=== PATIENT | male | born 1950 | race Caucasian/White ===

== ENCOUNTER 2019-05-03 13:54 | Inpatient (IN) | payer MEDICARE ==
[2019-05-03] MEDS ORDERED: Lactated Ringers 1,000 ML IV ONE (13:58)
[2019-05-03] MEDS ORDERED: ceFAZolin 2 GM in Premix Bag 1 BAG IV ONE (14:00)
--- NOTE | 2019-05-03 14:09 | EDM.PDOC ---
ED HPI GENERAL MEDICAL PROBLEM - General Chief Complaint: General Stated Complaint: MED [facility]IA [facility] Time Seen by Provider: 05/03/19 13:55 Source of Information: Reports: Patient, EMS, Family, Old Records, RN History Limitations: Reports: No Limitations - History of Present Illness INITIAL COMMENTS - FREE TEXT/NARRATIVE: 68 yo male here via EMS from his home in [place] where he lives with his . She says he has not eaten or drank much in the last 24 hrs. He became ill about 5 d ago and then yesterday morning she noticed redness on the R side of his face that has spread significantly since then. Seems a bit confused today. No treatment for fever today. Has facial cellulitis once in the remote past. 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 (see below) (none) - Related Data Allergies Allergy/AdvReac Type Severity Reaction Status Date / Time cyclobenzaprine HCl Allergy Seizure Verified 05/03/19 14:20 [From Flexeril] Home Meds: Home Meds Aspirin [Halfprin] 1 tab PO DAILY 12/31/14 [History] Cholecalciferol (Vitamin D3) [Vitamin D] 1 cap PO DAILY 12/31/14 [History] Divalproex Sodium [Divalproex Sodium ER] 1,000 mg PO BID 12/31/14 [History] Lisinopril 40 mg PO DAILY 12/31/14 [History] Metoprolol Succinate 50 mg PO BID 12/31/14 [History] Multivitamin with Minerals [Multiple Vitamin] 1 tab PO DAILY 12/31/14 [History] amLODIPine [Norvasc] 10 mg PO DAILY 12/31/14 [History] atorvaSTATin [Lipitor] 40 mg PO BEDTIME 12/31/14 [History] carBAMazepine [TEGretol] 300 mg PO BID 12/31/14 [History] ED ROS GENERAL - Review of Systems Review Of Systems: See Below Constitutional: Reports: Fever, Malaise, Fatigue HEENT: Reports: No Symptoms Respiratory: Reports: No Symptoms Cardiovascular: Reports: No Symptoms GI/Abdominal: Reports: Decreased Appetite : Reports: No Symptoms Musculoskeletal: Reports: No Symptoms Skin: Reports: Erythema (R side of face) Neurological: Denies: Headache Psychiatric: Reports: Confusion (mild) ED EXAM, GENERAL - Physical Exam Exam: See Below Exam Limited By: No Limitations General Appearance: Alert, WD/WN, No Apparent Distress Eye Exam: Bilateral Eye: Normal Inspection Ears: Normal External Exam, Normal Canal, Hearing Grossly Normal, Normal TMs Ear Exam: Bilateral Ear: Auricle Normal, Canal Normal, TM normal Nose: Normal Inspection, No Blood Throat/Mouth: Normal Inspection, Normal Lips, Normal Oropharynx, Normal Voice, No Airway Compromise Head: Atraumatic, Normocephalic Neck: Normal Inspection. No: Lymphadenopathy (R), Lymphadenopathy (L) Respiratory/Chest: No Respiratory Distress, Lungs Clear, Normal Breath Sounds, No Accessory Muscle Use Cardiovascular: Regular Rate, Rhythm, No Edema GI/Abdominal: Normal Bowel Sounds, Soft, Non-Tender, No Distention Extremities: Normal Inspection, Normal Range of Motion, Non-Tender, No Pedal Edema Neurological: CN II-XII Intact, No Motor/Sensory Deficits, Confused, Slow to Respond Psychiatric: Flat Affect Skin Exam: Warm, Dry, No Rash, Erythema (and increased warmth to the R side of his face. ), Increased Warmth. No: Rash, Wound/Incision, Zoster-Like Rash Course - Vital Signs Last Recorded V/S: Last Vital Signs Temp 39.7 C H 05/03/19 14:28 Pulse 91 05/03/19 14:28 Resp 20 05/03/19 14:28 BP 141/72 H 05/03/19 14:28 Pulse Ox 94 L 05/03/19 14:28 - Orders/Labs/Meds Orders: Active Orders 24 hr Category Date Time Status CULTURE BLOOD [BC] Stat Lab 05/03/19 14:00 Received CULTURE BLOOD [BC] Stat Lab 05/03/19 14:15 Received LACTIC ACID [CHEM] Stat Lab 05/03/19 14:00 Received UA W/MICROSCOPIC [URIN] Stat Lab 05/03/19 13:59 Ordered Lactated Ringers [Ringers, Lactated] 1,000 ml Med 05/03/19 13:58 Active IV BOLUS Medication Orders Lactated Ringer's (Ringers, Lactated) 1,000 mls @ 1,000 mls/hr IV BOLUS ONE Stop: 05/03/19 14:57 Last Admin: 05/03/19 14:18 Dose: 1,000 mls/hr Labs: Laboratory Tests 05/03/19 05/03/19 Range/Units 14:00 14:00 WBC 20.2 H (4.5-11.0) K/uL RBC 4.42 (4.30-5.90) M/uL Hgb 13.7 (12.0-15.0) g/dL Hct 42.1 (40.0-54.0) % MCV 95 (80-98) fL MCH 31 (27-31) pg MCHC 33 (32-36) % Plt Count 195 (150-400) K/uL Sodium 132 L (140-148) mmol/L Potassium 3.0 L (3.6-5.2) mmol/L Chloride 94 L (100-108) mmol/L Carbon Dioxide 27 (21-32) mmol/L Anion Gap 14.0 (5.0-14.0) mmol/L BUN 22 H (7-18) mg/dL Creatinine 1.4 H (0.8-1.3) mg/dL Est Cr Clr Drug Dosing 39.50 mL/min Estimated GFR (MDRD) 50 L (>60) Glucose 128 H (74-106) mg/dL Calcium 9.0 (8.5-10.1) mg/dL Meds: Medications Generic Name Dose Route Start Last Admin Trade Name Freq PRN Reason Stop Dose Admin Lactated Ringer's 1,000 mls @ 1,000 mls/hr 05/03/19 13:58 05/03/19 14:18 Ringers, Lactated IV 05/03/19 14:57 1,000 mls/hr BOLUS ONE Administration Discontinued Medications Generic Name Dose Route Start Last Admin Trade Name Freq PRN Reason Stop Dose Admin Cefazolin Sodium/Dextrose 2 gm 50 mls @ 100 mls/hr 05/03/19 14:00 05/03/19 14 :18 / Premix IV 05/03/19 14:29 100 mls/hr ONETIME ONE Administration Departure - Departure Time of Disposition: 14:50 Disposition: Admitted As Inpatient 64 Condition: Poor Clinical Impression: Facial cellulitis, Hypokalemia, Confusion - Discharge Information *PRESCRIPTION DRUG MONITORING PROGRAM REVIEWED*: No *COPY OF PRESCRIPTION DRUG MONITORING REPORT IN PATIENT AASHISH: No Instructions: Cellulitis, Adult Referrals: PCP,None [Primary Care Provider] - Forms: ED Department Discharge Sepsis Event Note - Focused Exam Vital Signs: Vital Signs Temp Pulse Resp BP Pulse Ox 05/03/19 14:28 39.7 C H 91 20 141/72 H 94 L 05/03/19 13:55 39.7 C H 91 20 141/72 H 94 L Date Exam was Performed: 05/03/19 Time Exam was Performed: 14:39 - My Orders Last 24 Hours: My Active Orders 05/03/19 13:58 Lactated Ringers [Ringers, Lactated] 1,000 ml IV BOLUS 05/03/19 13:59 UA W/MICROSCOPIC [URIN] Stat 05/03/19 14:00 CULTURE BLOOD [BC] Stat LACTIC ACID [CHEM] Stat 05/03/19 14:15 CULTURE BLOOD [BC] Stat - Assessment/Plan Last 24 Hours: My Active Orders 05/03/19 13:58 Lactated Ringers [Ringers, Lactated] 1,000 ml IV BOLUS 05/03/19 13:59 UA W/MICROSCOPIC [URIN] Stat 05/03/19 14:00 CULTURE BLOOD [BC] Stat LACTIC ACID [CHEM] Stat 05/03/19 14:15 CULTURE BLOOD [BC] Stat
[2019-05-03] MEDS ORDERED: Acetaminophen 500 MG Tab PO ONE (14:40)
--- NOTE | 2019-05-03 15:19 | PCM.HP.2 ---
H&P History of Present Illness - General Date of Service: 05/03/19 Admit Problem/Dx: Admission Diagnosis/Problem Admission Diagnosis/Problem Cellulitis Source of Information: Patient, Family, Provider, RN Notes Reviewed History Limitations: Reports: No Limitations - History of Present Illness Initial Comments - Free Text/Narative: Mr. Tai is a 68-year-old gentleman who was admitted through the emergency department with weakness and fever secondary to cellulitis of his right face and head. He has not felt well over the past 5 days, noted erythema swelling of his right cheek yesterday. Since then the area of erythema and induration has increased and spread onto the forehead and scalp. He has had fever, chills, nausea, and vomiting, as well as weakness. On evaluation in the emergency department white blood cell count is elevated at 20,000 and he has had a documented fever. - Related Data Allergies/Adverse Reactions: Allergies Allergy/AdvReac Type Severity Reaction Status Date / Time cyclobenzaprine HCl Allergy Seizure Verified 05/03/19 14:20 [From Flexeril] Home Medications: Home Meds Aspirin [Halfprin] 1 tab PO DAILY 12/31/14 [History] Cholecalciferol (Vitamin D3) [Vitamin D] 1 cap PO DAILY 12/31/14 [History] Divalproex Sodium [Divalproex Sodium ER] 1,000 mg PO BID 12/31/14 [History] Lisinopril 40 mg PO DAILY 12/31/14 [History] Metoprolol Succinate 50 mg PO BID 12/31/14 [History] Multivitamin with Minerals [Multiple Vitamin] 1 tab PO DAILY 12/31/14 [History] amLODIPine [Norvasc] 10 mg PO DAILY 12/31/14 [History] atorvaSTATin [Lipitor] 40 mg PO BEDTIME 12/31/14 [History] carBAMazepine [TEGretol] 300 mg PO BID 12/31/14 [History] Past Medical History Cardiovascular History: Reports: High Cholesterol, Hypertension, [place] Musculoskeletal History: Reports: Back Pain, Chronic Neurological History: Reports: Seizure - Past Surgical History Cardiovascular Surgical History: Reports: Coronary Artery Bypass GI Surgical History: Reports: Cholecystectomy H&P Review of Systems - Review of Systems: Review Of Systems: See Below General: Reports: Fever, Chills, Weakness, Diaphoresis, Decreased Appetite HEENT: Reports: No Symptoms Pulmonary: Reports: No Symptoms Cardiovascular: Reports: No Symptoms Gastrointestinal: Reports: Decreased Appetite, Nausea, Vomiting. Denies: Abdominal Pain, Anorexia, Black Stool, Bloody Stool, Constipation, Diarrhea, Difficulty Swallowing, Distension Genitourinary: Reports: No Symptoms Musculoskeletal: Reports: No Symptoms Skin: Reports: Other (Erythema swelling right face forehead and scalp) Psychiatric: Reports: No Symptoms Neurological: Reports: No Symptoms Hematologic/Lymphatic: Reports: No Symptoms Immunologic: Reports: No Symptoms Exam - Exam Exam: See Below - Vital Signs Vital Signs: Last Vital Signs Temp 103.4 F H 05/03/19 14:28 Pulse 91 05/03/19 14: Resp 20 05/03/19 14: BP 141/72 H 05/03/19 14: Pulse Ox 94 L 05/03/19 14:28 Weight: 179 lb 0.246 oz - Exam General: Alert, Oriented, Cooperative, Moderate Distress HEENT: Conjunctiva Clear, Hearing Intact, Mucosa Moist & Orange, Normal Nasal Septum, Posterior Pharynx Clear, Pupils Equal Neck: Supple, Trachea Midline, +2 Carotid Pulse wo Bruit Lungs: Clear to Auscultation, Normal Respiratory Effort Cardiovascular: Regular Rate, Regular Rhythm, Normal S1, Normal S2. No: Systolic Murmur, Diastolic Murmur GI/Abdominal Exam: Soft, Non-Tender, No Organomegaly, No Distention Back Exam: Normal Inspection, Full Range of Motion Extremities: Non-Tender, No Pedal Edema Skin: Other (Marked erythema swelling right face forehead and scalp) Neurological: Cranial Nerves Intact, Strength Equal Bilateral, Normal Speech, Normal Tone, Sensation Intact. No: Focal Deficit Neuro Extensive - Mental Status: Alert, Oriented x3, Normal Mood/Affect, Normal Cognition, Memory Intact - Patient Data Lab Results Last 24 hrs: Laboratory Results - last 24 hr 05/03/19 05/03/19 05/03/19 Range/Units 14:00 14:00 14:00 WBC 20.2 H (4.5-11.0) K/uL RBC 4.42 (4.30-5.90) M/uL Hgb 13.7 (12.0-15.0) g/dL Hct 42.1 (40.0-54.0) % MCV 95 (80-98) fL MCH 31 (27-31) pg MCHC 33 (32-36) % Plt Count 195 (150-400) K/uL Sodium 132 L (140-148) mmol/L Potassium 3.0 L (3.6-5.2) mmol/L Chloride 94 L (100-108) mmol/L Carbon Dioxide 27 (21-32) mmol/L Anion Gap 14.0 (5.0-14.0) mmol/L BUN 22 H (7-18) mg/dL Creatinine 1.4 H (0.8-1.3) mg/dL Est Cr Clr Drug Dosing 39.50 mL/min Estimated GFR (MDRD) 50 L (>60) Glucose 128 H (74-106) mg/dL Lactic Acid 2.2 H (0.4-2.0) mmol/L Calcium 9.0 (8.5-10.1) mg/dL Result Diagrams: 05/03/19 14:00 05/03/19 14:00 Sepsis Event Note - Evaluation Sepsis Screening Result: Possible Severe Sepsis Risk - Focused Exam Vital Signs: Vital Signs Temp Pulse Resp BP Pulse Ox 05/03/19 14:28 103.4 F H 91 20 141/72 H 94 L 05/03/19 13:55 103.4 F H 91 20 141/72 H 94 L Date Exam was Performed: 05/03/19 Time Exam was Performed: 15:40 *Q Meaningful Use (ADM) - VTE Risk Assess *Q Each Risk Factor Represents 1 Point: Obesity ( BMI > 25 kg/m2) Total Score 1 Point Risk Factors: 1 Each Risk Factor Represents 2 Points: Age 60 - 74 Years Total Score 2 Point Risk Factors: 2 Each Risk Factor Represents 3 Points: None Total Score 3 Point Risk Factors: 0 Each Risk Factor Represents 5 Points: None Total Score 5 Point Risk Factors: 0 Venous Thromboembolism Risk Factor Score *Q: 3 Problem List Initiated/Reviewed/Updated: Yes Orders Last 24hrs: Active Orders 24 hr Category Date Time Status Patient Status Manage Transfer [TRANSFER] Routine ADT 05/03/19 15:10 Ordered CULTURE BLOOD [BC] Stat Lab 05/03/19 14:00 Received CULTURE BLOOD [BC] Stat Lab 05/03/19 14:15 Received UA W/MICROSCOPIC [URIN] Stat Lab 05/03/19 13:59 Ordered Resuscitation Status Routine Resus Stat 05/03/19 15:13 Ordered Assessment/Plan Comment:: ASSESSMENT AND PLAN CELLULITIS RIGHT FACE WITH SEPSIS-set of erythema yesterday with rapid progression, now involves most of the right face forehead and extends into the scalp. Evidence of sepsis with leukocytosis and fever. No evidence of underlying abscess. -Blood cultures pending -IV fluids -Cefazolin 2 g IV every 8 hours CORONARY ARTERY DISEASE-asymptomatic -Continue outpatient medications SEIZURE DISORDER -Continue outpatient medications MAINTENANCE ISSUES -DVT prophylaxis; Lovenox 40 mg subcu daily -GI prophylaxis; not indicated -Chow catheter; not indicated -Nutrition; 2 g sodium diet -Nicotine dependence; not required CODE STATUS-FULL CODE ADMISSION STATUS-patient will be admitted to inpatient status, expect at least a 2 night hospital stay for evaluation and management of problems as outlined above. At the time of this admission I do not reasonably expected evaluation and management of this problem will require more than a 96 hour hospital stay. DISPOSITION-anticipate discharge to home after the hospital stay. PRIMARY CARE PROVIDER- - Mortality Measure Prognosis:: Good
[2019-05-03] MEDS ORDERED: Sodium Chloride 0.9% 10 ML Syringe FLUSH PRN (16:24)
[2019-05-03] MEDS ORDERED: Polyethylene Glycol 3350 Powder 17 GM Packet PO PRN (16:24)
[2019-05-03] MEDS ORDERED: Ondansetron 4 MG/2 ML SDV IV PRN (16:24)
[2019-05-03] MEDS ORDERED: oxyCODONE 5 MG Tab PO PRN (16:24)
[2019-05-03] MEDS ORDERED: Enoxaparin 40 MG/0.4 ML Syringe SUBCUT SCH (16:24)
[2019-05-03] MEDS: Sodium Chloride 0.9% 1,000 ML IV SCH (16:33)
[2019-05-03] MEDS: Acetaminophen 325 MG Tab PO PRN (20:25)
[2019-05-03] MEDS: Metoprolol Succinate 50 MG Tab.ER PO SCH (20:56)
[2019-05-03] MEDS: carBAMazepine 200 MG Tab PO SCH (20:58)
[2019-05-03] MEDS: Divalproex Sodium 250 MG Tab.ER PO SCH (21:03)
[2019-05-03] MEDS ORDERED: Ibuprofen 800 MG Tab PO PRN (21:06)
[2019-05-03] MEDS: ceFAZolin 2 GM in Sodium Chloride 0.9% 50 ML IV SCH (22:00)
[2019-05-04] MEDS: Sodium Chloride 0.9% 1,000 ML IV SCH ×3 (00:33→19:47)
[2019-05-04] MEDS: ceFAZolin 2 GM in Sodium Chloride 0.9% 50 ML IV SCH ×3 (05:23→21:13)
[2019-05-04] MEDS ORDERED: Sodium Chloride 0.9% 1,000 ML IV SCH (09:00)
[2019-05-04] MEDS ORDERED: Aspirin 81 MG Tab.EC PO SCH (09:00)
[2019-05-04] MEDS ORDERED: Potassium Chloride 20 MEQ Tab.ER PO ONE ×2 (09:00→13:00)
[2019-05-04] MEDS: Acetaminophen 325 MG Tab PO PRN ×2 (09:31→19:53)
[2019-05-04] MEDS: Divalproex Sodium 250 MG Tab.ER PO SCH ×3 (09:32→20:17)
[2019-05-04] MEDS: amLODIPine 10 MG Tab PO SCH (09:32)
[2019-05-04] MEDS: carBAMazepine 200 MG Tab PO SCH ×3 (09:34→20:17)
[2019-05-04] MEDS: Lisinopril 20 MG Tab PO SCH (09:34)
[2019-05-04] MEDS: Metoprolol Succinate 50 MG Tab.ER PO SCH ×3 (09:35→20:17)
--- NOTE | 2019-05-04 10:28 | PCM.PN ---
- General Info Date of Service: 05/04/19 Subjective Update: Mr. Tai has experienced modest improvement in cellulitis with less tenderness swelling and pain. He did experience significant temperature elevation after admission but that seems to have settled down. White blood cell count is modestly improved, renal function slightly worse. Lactic acid level remains mildly elevated and increased from last night. Functional Status: Reports: Tolerating Diet, Ambulating, Urinating - Review of Systems General: Reports: Fever, Weakness, Chills Pulmonary: Reports: No Symptoms Cardiovascular: Reports: No Symptoms Gastrointestinal: Reports: No Symptoms Skin: Reports: Other (Cellulitis right face) - Patient Data Vitals - Most Recent: Last Vital Signs Temp 99.5 F 05/04/19 08:25 Pulse 65 05/04/19 09:35 Resp 16 05/04/19 08:25 BP 142/62 H 05/04/19 09:35 Pulse Ox 97 05/04/19 08:25 Weight - Most Recent: 180 lb I&O - Last 24 Hours: Intake & Output 05/03/19 05/04/19 05/04/19 22:59 06:59 14:59 Intake Total 184 1524 Balance 184 1524 Lab Results Last 24 Hours: Laboratory Results - last 24 hr 05/03/19 05/03/19 05/03/19 Range/Units 14:00 14:00 14:00 WBC 20.2 H (4.5-11.0) K/uL RBC 4.42 (4.30-5.90) M/uL Hgb 13.7 (12.0-15.0) g/dL Hct 42.1 (40.0-54.0) % MCV 95 (80-98) fL MCH 31 (27-31) pg MCHC 33 (32-36) % Plt Count 195 (150-400) K/uL Neut % (Auto) (36-66) % Lymph % (Auto) (24-44) % [place] % (Auto) (2-6) % Eos % (Auto) (2-4) % Baso % (Auto) (0-1) % Sodium 132 L (140-148) mmol/L Potassium 3.0 L (3.6-5.2) mmol/L Chloride 94 L (100-108) mmol/L Carbon Dioxide 27 (21-32) mmol/L Anion Gap 14.0 (5.0-14.0) mmol/L BUN 22 H (7-18) mg/dL Creatinine 1.4 H (0.8-1.3) mg/dL Est Cr Clr Drug Dosing 39.50 mL/min Estimated GFR (MDRD) 50 L (>60) Glucose 128 H (74-106) mg/dL Lactic Acid 2.2 H (0.4-2.0) mmol/L Calcium 9.0 (8.5-10.1) mg/dL Urine Color (YELLOW) Urine Appearance (CLEAR) Urine pH (5.0-8.0) Ur Specific [place] (1.008-1.030) Urine Protein (NEGATIVE) mg/dL Urine Glucose (UA) (NEGATIVE) mg/dL Urine Ketones (NEGATIVE) mg/dL Urine Occult Blood (NEGATIVE) Urine Nitrite (NEGATIVE) Urine Bilirubin (NEGATIVE) Urine Urobilinogen (0.2-1.0) EU/dL Ur Leukocyte Esterase (NEGATIVE) Urine RBC (0-5) Urine WBC (0-5) Ur Epithelial Cells Amorphous Sediment Urine Bacteria Urine Mucus 05/03/19 05/03/19 05/04/19 Range/Units 15:50 21:48 05:40 WBC (4.5-11.0) K/uL RBC (4.30-5.90) M/uL Hgb (12.0-15.0) g/dL Hct (40.0-54.0) % MCV (80-98) fL MCH (27-31) pg MCHC (32-36) % Plt Count (150-400) K/uL Neut % (Auto) (36-66) % Lymph % (Auto) (24-44) % [place] % (Auto) (2-6) % Eos % (Auto) (2-4) % Baso % (Auto) (0-1) % Sodium (140-148) mmol/L Potassium (3.6-5.2) mmol/L Chloride (100-108) mmol/L Carbon Dioxide (21-32) mmol/L Anion Gap (5.0-14.0) mmol/L BUN (7-18) mg/dL Creatinine (0.8-1.3) mg/dL Est Cr Clr Drug Dosing mL/min Estimated GFR (MDRD) (>60) Glucose (74-106) mg/dL Lactic Acid 2.4 H 2.5 H (0.4-2.0) mmol/L Calcium (8.5-10.1) mg/dL Urine Color Yellow (YELLOW) Urine Appearance Clear (CLEAR) Urine pH 6.0 (5.0-8.0) Ur Specific [place] >= 1.030 (1.008-1.030) Urine Protein 100 H (NEGATIVE) mg/dL Urine Glucose (UA) Negative (NEGATIVE) mg/dL Urine Ketones Negative (NEGATIVE) mg/dL Urine Occult Blood Trace-intact H (NEGATIVE) Urine Nitrite Negative (NEGATIVE) Urine Bilirubin Negative (NEGATIVE) Urine Urobilinogen 0.2 (0.2-1.0) EU/dL Ur Leukocyte Esterase Negative (NEGATIVE) Urine RBC 0-5 (0-5) Urine WBC 0-5 (0-5) Ur Epithelial Cells Not seen Amorphous Sediment Few Urine Bacteria Not seen Urine Mucus Not seen 05/04/19 05/04/19 Range/Units 05:50 05:50 WBC 17.6 H (4.5-11.0) K/uL RBC 3.63 L (4.30-5.90) M/uL Hgb 11.3 L D (12.0-15.0) g/dL Hct 35.8 L (40.0-54.0) % MCV 99 H (80-98) fL MCH 31 (27-31) pg MCHC 32 (32-36) % Plt Count 162 (150-400) K/uL Neut % (Auto) 78 H (36-66) % Lymph % (Auto) 12 L (24-44) % [place] % (Auto) 10 H (2-6) % Eos % (Auto) 0 L (2-4) % Baso % (Auto) 0 (0-1) % Sodium 137 L (140-148) mmol/L Potassium 3.2 L (3.6-5.2) mmol/L Chloride 99 L (100-108) mmol/L Carbon Dioxide 29 (21-32) mmol/L Anion Gap 12.2 (5.0-14.0) mmol/L BUN 30 H (7-18) mg/dL Creatinine 1.7 H (0.8-1.3) mg/dL Est Cr Clr Drug Dosing 32.54 mL/min Estimated GFR (MDRD) 40 L (>60) Glucose 97 (74-106) mg/dL Lactic Acid (0.4-2.0) mmol/L Calcium 8.3 L (8.5-10.1) mg/dL Urine Color (YELLOW) Urine Appearance (CLEAR) Urine pH (5.0-8.0) Ur Specific [place] (1.008-1.030) Urine Protein (NEGATIVE) mg/dL Urine Glucose (UA) (NEGATIVE) mg/dL Urine Ketones (NEGATIVE) mg/dL Urine Occult Blood (NEGATIVE) Urine Nitrite (NEGATIVE) Urine Bilirubin (NEGATIVE) Urine Urobilinogen (0.2-1.0) EU/dL Ur Leukocyte Esterase (NEGATIVE) Urine RBC (0-5) Urine WBC (0-5) Ur Epithelial Cells Amorphous Sediment Urine Bacteria Urine Mucus Med Orders - Current: Current Medications Acetaminophen (Tylenol) 650 mg PO Q4H PRN PRN Reason: Pain (Mild 1-3)/fever Last Admin: 05/04/19 09:31 Dose: 650 mg Amlodipine Besylate (Norvasc) 10 mg PO DAILY [facility] Last Admin: 05/04/19 09:32 Dose: 10 mg Aspirin (Halfprin) 81 mg PO DAILY [facility] Atorvastatin Calcium (Lipitor) 40 mg PO BEDTIME [facility] Carbamazepine (Tegretol Tab) 300 mg PO BID [facility] Last Admin: 05/04/19 09:34 Dose: 300 mg Divalproex Sodium (Depakote Er) 1,000 mg PO BID [facility] Last Admin: 05/04/19 09:32 Dose: 1,000 mg Enoxaparin Sodium (Lovenox) 40 mg SUBCUT QPM [facility] Cefazolin Sodium 2 gm/ Sodium (Chloride) 50 mls @ 200 mls/hr IV Q8HR [facility] Last Admin: 05/04/19 05:23 Dose: 200 mls/hr Sodium Chloride (Normal Saline) 1,000 mls @ 125 mls/hr IV ASDIRECTED [facility] Last Admin: 05/04/19 00:33 Dose: 125 mls/hr Sodium Chloride (Normal Saline) 1,000 mls @ 500 mls/hr IV ASDIRECTED [facility] Stop: 05/04/19 11:01 Last Admin: 05/04/19 09:36 Dose: 500 mls/hr Lisinopril (Prinivil) 40 mg PO DAILY [facility] Last Admin: 05/04/19 09:34 Dose: 40 mg Metoprolol Succinate (Toprol Xl) 50 mg PO BID [facility] Last Admin: 05/04/19 09:35 Dose: 50 mg Ondansetron HCl (Zofran) 4 mg IV Q4H PRN PRN Reason: Nausea/Vomiting Oxycodone HCl (Oxycodone) 5 mg PO Q4H PRN PRN Reason: Pain (moderate 4-6) Polyethylene Glycol (Miralax) 17 gm PO DAILY PRN PRN Reason: Constipation Potassium Chloride (Klor-Con M20) 40 meq PO ONETIME ONE Stop: 05/04/19 13:01 Sodium Chloride (Saline Flush) 10 ml FLUSH ASDIRECTED PRN PRN Reason: Keep Vein Open Discontinued Medications Acetaminophen (Tylenol Extra Strength) 1,000 mg PO ONETIME ONE Stop: 05/03/19 14:41 Last Admin: 05/03/19 14:58 Dose: 1,000 mg Enoxaparin Sodium (Lovenox) 40 mg SUBCUT DAILY [facility] Last Admin: 05/03/19 18:00 Dose: 40 mg Lactated Ringer's (Ringers, Lactated) 1,000 mls @ 1,000 mls/hr IV BOLUS ONE Stop: 05/03/19 14:57 Last Admin: 05/03/19 14:18 Dose: 1,000 mls/hr Cefazolin Sodium/Dextrose 2 gm (/ Premix) 50 mls @ 100 mls/hr IV ONETIME ONE Stop: 05/03/19 14:29 Last Admin: 05/03/19 14:18 Dose: 100 mls/hr Ibuprofen (Motrin) 800 mg PO Q8H PRN PRN Reason: Fever Last Admin: 05/03/19 21:38 Dose: 800 mg Potassium Chloride (Klor-Con M20) 40 meq PO ONETIME ONE Stop: 05/04/19 09:01 Last Admin: 05/04/19 09:31 Dose: 40 meq - Exam General: Alert, Oriented, Cooperative, No Acute Distress, Mild Distress Lungs: Clear to Auscultation, Normal Respiratory Effort Cardiovascular: Regular Rate, Regular Rhythm, No Murmurs GI/Abdominal Exam: Soft, Non-Tender, No Organomegaly, No Distention Extremities: Non-Tender, No Pedal Edema Skin: Other (Erythema right face and swelling, modestly improved from admission) Sepsis Event Note - Evaluation Sepsis Screening Result: Severe Sepsis Risk - Focused Exam Vital Signs: Vital Signs Temp Pulse Pulse Resp BP BP Pulse Ox 05/04/19 09:35 65 142/62 H 05/04/19 09:34 142/62 H 05/04/19 09:32 142/62 H 05/04/19 08:25 99.5 F 65 16 142/62 H 97 05/04/19 05:37 98.9 F 05/04/19 02:26 98.5 F 58 L 16 105/59 L 96 Date Exam was Performed: 05/04/19 Time Exam was Performed: 10:24 - Problem List Review Problem List Initiated/Reviewed/Updated: Yes - My Orders Last 24 Hours: My Active Orders 05/03/19 15:13 Resuscitation Status Routine 05/03/19 16:24 Patient Status [ADT] Routine Ambulate [RC] QID Height and Weight [RC] DAILY Intake and Output [RC] QSHIFT Notify Provider Vital Signs [RC] ASDIRECTED Oxygen Therapy [RC] PRN Peripheral IV Care [RC] . DIRECTED Up With Assistance [RC] ASDIRECTED Up to Chair [RC] QID Vital Signs [RC] Q4H Acetaminophen [Tylenol] 650 mg PO Q4H PRN Ondansetron [Zofran] 4 mg IV Q4H PRN Polyethylene Glycol 3350 [MiraLAX] 17 gm PO DAILY PRN Sodium Chloride 0.9% [Normal Saline] 1,000 ml IV ASDIRECTED Sodium Chloride 0.9% [Saline Flush] 10 ml FLUSH ASDIRECTED PRN oxyCODONE 5 mg PO Q4H PRN Peripheral IV Insertion Adult [OM.PC] Routine 05/03/19 21:00 Divalproex Sodium [Depakote ER] 1,000 mg PO BID Metoprolol Succinate [Toprol XL] 50 mg PO BID carBAMazepine [TEGretol Tab] 300 mg PO BID 05/03/19 22:00 ceFAZolin [Ancef] 2 gm Sodium Chloride 0.9% [Normal Saline] 50 ml IV Q8HR 05/03/19 Lunch 2 Gram Sodium Diet [DIET] 05/04/19 09:00 Aspirin [Halfprin] 81 mg PO DAILY Sodium Chloride 0.9% [Normal Saline] 1,000 ml IV ASDIRECTED amLODIPine [Norvasc] 10 mg PO DAILY lisinopriL [Prinivil] 40 mg PO DAILY 05/04/19 13:00 Potassium Chloride [Klor-Con M20] 40 meq PO ONETIME ONE 05/04/19 17:00 BASIC METABOLIC PANEL,BMP [CHEM] Stat LACTIC ACID [CHEM] Stat Enoxaparin [Lovenox] 40 mg SUBCUT QPM 05/04/19 21:00 atorvaSTATin [Lipitor] 40 mg PO BEDTIME 05/05/19 05:00 BASIC METABOLIC PANEL,BMP [CHEM] Timed CBC WITH AUTO DIFF [HEME] Timed LACTIC ACID [CHEM] Timed - Plan Plan:: ASSESSMENT AND PLAN CELLULITIS RIGHT FACE WITH SEPSIS-modest improvement since admission -Blood cultures pending -IV fluids -Cefazolin 2 g IV every 8 hours ACUTE KIDNEY INJURY-likely secondary to sepsis with underlying infection -IV fluid bolus now -Hold ibuprofen -Continue to closely monitor urine output and renal function CORONARY ARTERY DISEASE-asymptomatic -Continue outpatient medications SEIZURE DISORDER -Continue outpatient medications MAINTENANCE ISSUES -DVT prophylaxis; Lovenox 40 mg subcu daily -GI prophylaxis; not indicated -Chow catheter; not indicated -Nutrition; 2 g sodium diet -Nicotine dependence; not required CODE STATUS-FULL CODE ADMISSION STATUS-patient will be admitted to inpatient status, expect at least a 2 night hospital stay for evaluation and management of problems as outlined above. At the time of this admission I do not reasonably expected evaluation and management of this problem will require more than a 96 hour hospital stay. DISPOSITION-anticipate discharge to home after the hospital stay. PRIMARY CARE PROVIDER-
[2019-05-04] MEDS: Enoxaparin 40 MG/0.4 ML Syringe SUBCUT SCH (16:59)
[2019-05-04] MEDS: Aspirin 81 MG Tab.EC PO SCH (16:59)
[2019-05-04] MEDS: atorvaSTATin 20 MG Tab PO SCH ×2 (19:55→20:17)
[2019-05-05] MEDS: Sodium Chloride 0.9% 1,000 ML IV SCH ×2 (04:16→12:40)
[2019-05-05] MEDS: ceFAZolin 2 GM in Sodium Chloride 0.9% 50 ML IV SCH ×3 (05:10→21:17)
[2019-05-05] MEDS: Divalproex Sodium 250 MG Tab.ER PO SCH ×2 (08:44→21:28)
[2019-05-05] MEDS: amLODIPine 10 MG Tab PO SCH (08:44)
[2019-05-05] MEDS: carBAMazepine 200 MG Tab PO SCH ×2 (08:45→21:29)
[2019-05-05] MEDS: Lisinopril 20 MG Tab PO SCH (08:45)
[2019-05-05] MEDS: Metoprolol Succinate 50 MG Tab.ER PO SCH ×2 (08:45→21:29)
[2019-05-05] MEDS: Acetaminophen 325 MG Tab PO PRN (08:51)
--- NOTE | 2019-05-05 13:23 | PCM.PN ---
- General Info Date of Service: 05/05/19 Subjective Update: Mr. Tai has shown further improvement since yesterday, no significant temperature elevations and he has been hemodynamically stable. Renal function has improved and lactic acid has normalized. White blood cell count improved but not yet within normal range. Less tenderness and swelling over his right face. Functional Status: Reports: Tolerating Diet, Ambulating, Urinating - Review of Systems General: Reports: Weakness. Denies: Fever, Chills Pulmonary: Reports: No Symptoms Cardiovascular: Reports: No Symptoms Gastrointestinal: Reports: No Symptoms Skin: Reports: Other (Erythema right face and scalp improved from admission) - Patient Data Vitals - Most Recent: Last Vital Signs Temp 97.7 F 05/05/19 10:45 Pulse 70 05/05/19 10:45 Resp 16 05/05/19 10:45 BP 133/77 05/05/19 10:45 Pulse Ox 95 05/05/19 10:45 Weight - Most Recent: 183 lb 6.4 oz I&O - Last 24 Hours: Intake & Output 05/04/19 05/05/19 05/05/19 22:59 06:59 14:59 Intake Total 2119 2069 820 Balance 21190 820 Lab Results Last 24 Hours: Laboratory Results - last 24 hr 05/04/19 05/04/19 05/05/19 Range/Units 17:55 17:55 04:15 WBC 13.0 H (4.5-11.0) K/uL RBC 3.38 L (4.30-5.90) M/uL Hgb 10.5 L (12.0-15.0) g/dL Hct 33.3 L (40.0-54.0) % MCV 99 H (80-98) fL MCH 31 (27-31) pg MCHC 32 (32-36) % Plt Count 160 (150-400) K/uL Add Manual Diff Yes Neutrophils % (Manual) 59 (36-66) % Band Neutrophils % 13 H (5-11) % Lymphocytes % (Manual) 15 L (24-44) % Monocytes % (Manual) 13 H (2-6) % Sodium 138 L (140-148) mmol/L Potassium 3.6 (3.6-5.2) mmol/L Chloride 102 (100-108) mmol/L Carbon Dioxide 27 (21-32) mmol/L Anion Gap 12.6 (5.0-14.0) mmol/L BUN 30 H (7-18) mg/dL Creatinine 1.3 (0.8-1.3) mg/dL Est Cr Clr Drug Dosing 42.55 mL/min Estimated GFR (MDRD) 55 L (>60) Glucose 91 (74-106) mg/dL Lactic Acid 1.6 (0.4-2.0) mmol/L Calcium 8.2 L (8.5-10.1) mg/dL 05/05/19 05/05/19 Range/Units 04:15 04:15 WBC (4.5-11.0) K/uL RBC (4.30-5.90) M/uL Hgb (12.0-15.0) g/dL Hct (40.0-54.0) % MCV (80-98) fL MCH (27-31) pg MCHC (32-36) % Plt Count (150-400) K/uL Add Manual Diff Neutrophils % (Manual) (36-66) % Band Neutrophils % (5-11) % Lymphocytes % (Manual) (24-44) % Monocytes % (Manual) (2-6) % Sodium 139 L (140-148) mmol/L Potassium 3.6 (3.6-5.2) mmol/L Chloride 105 (100-108) mmol/L Carbon Dioxide 27 (21-32) mmol/L Anion Gap 10.6 (5.0-14.0) mmol/L BUN 23 H (7-18) mg/dL Creatinine 1.0 (0.8-1.3) mg/dL Est Cr Clr Drug Dosing 55.32 mL/min Estimated GFR (MDRD) > 60 (>60) Glucose 87 (74-106) mg/dL Lactic Acid 1.2 (0.4-2.0) mmol/L Calcium 7.8 L (8.5-10.1) mg/dL [place] Results Last 24 Hours: Microbiology 05/03/19 14:15 Aerobic Blood Culture - Preliminary Blood - Venous NO GROWTH AFTER 1 DAY Anaerobic Blood Culture - Preliminary NO GROWTH AFTER 1 DAY 05/03/19 14:00 Aerobic Blood Culture - Preliminary Blood - Venous NO GROWTH AFTER 1 DAY Anaerobic Blood Culture - Preliminary NO GROWTH AFTER 1 DAY Med Orders - Current: Current Medications Acetaminophen (Tylenol) 650 mg PO Q4H PRN PRN Reason: Pain (Mild 1-3)/fever Last Admin: 05/05/19 08:51 Dose: 650 mg Amlodipine Besylate (Norvasc) 10 mg PO DAILY [facility] Last Admin: 05/05/19 08:44 Dose: 10 mg Aspirin (Halfprin) 81 mg PO QPM [facility] Last Admin: 05/04/19 16:59 Dose: 81 mg Atorvastatin Calcium (Lipitor) 40 mg PO BEDTIME [facility] Last Admin: 05/04/19 20:17 Dose: Not Given Carbamazepine (Tegretol Tab) 300 mg PO BID [facility] Last Admin: 05/05/19 08:45 Dose: 300 mg Divalproex Sodium (Depakote Er) 1,000 mg PO BID [facility] Last Admin: 05/05/19 08:44 Dose: 1,000 mg Enoxaparin Sodium (Lovenox) 40 mg SUBCUT QPM [facility] Last Admin: 05/04/19 16:59 Dose: 40 mg Cefazolin Sodium 2 gm/ Sodium (Chloride) 50 mls @ 200 mls/hr IV Q8HR [facility] Last Admin: 05/05/19 05:10 Dose: 200 mls/hr Lisinopril (Prinivil) 40 mg PO DAILY [facility] Last Admin: 05/05/19 08:45 Dose: 40 mg Metoprolol Succinate (Toprol Xl) 50 mg PO BID [facility] Last Admin: 05/05/19 08:45 Dose: 50 mg Ondansetron HCl (Zofran) 4 mg IV Q4H PRN PRN Reason: Nausea/Vomiting Oxycodone HCl (Oxycodone) 5 mg PO Q4H PRN PRN Reason: Pain (moderate 4-6) Polyethylene Glycol (Miralax) 17 gm PO DAILY PRN PRN Reason: Constipation Sodium Chloride (Saline Flush) 10 ml FLUSH ASDIRECTED PRN PRN Reason: Keep Vein Open Discontinued Medications Acetaminophen (Tylenol Extra Strength) 1,000 mg PO ONETIME ONE Stop: 05/03/19 14:41 Last Admin: 05/03/19 14:58 Dose: 1,000 mg Aspirin (Halfprin) 81 mg PO DAILY [facility] Enoxaparin Sodium (Lovenox) 40 mg SUBCUT DAILY [facility] Last Admin: 05/03/19 18:00 Dose: 40 mg Lactated Ringer's (Ringers, Lactated) 1,000 mls @ 1,000 mls/hr IV BOLUS ONE Stop: 05/03/19 14:57 Last Admin: 05/03/19 14:18 Dose: 1,000 mls/hr Cefazolin Sodium/Dextrose 2 gm (/ Premix) 50 mls @ 100 mls/hr IV ONETIME ONE Stop: 05/03/19 14:29 Last Admin: 05/03/19 14:18 Dose: 100 mls/hr Sodium Chloride (Normal Saline) 1,000 mls @ 125 mls/hr IV ASDIRECTED [facility] Last Admin: 05/05/19 12:40 Dose: 125 mls/hr Sodium Chloride (Normal Saline) 1,000 mls @ 500 mls/hr IV ASDIRECTED [facility] Stop: 05/04/19 11:01 Last Admin: 05/04/19 09:36 Dose: 500 mls/hr Ibuprofen (Motrin) 800 mg PO Q8H PRN PRN Reason: Fever Last Admin: 05/03/19 21:38 Dose: 800 mg Potassium Chloride (Klor-Con M20) 40 meq PO ONETIME ONE Stop: 05/04/19 09:01 Last Admin: 05/04/19 09:31 Dose: 40 meq Potassium Chloride (Klor-Con M20) 40 meq PO ONETIME ONE Stop: 05/04/19 13:01 Last Admin: 05/04/19 14:23 Dose: 40 meq - Exam General: Alert, Oriented, Cooperative, Mild Distress Lungs: Clear to Auscultation, Normal Respiratory Effort Cardiovascular: Regular Rate, Regular Rhythm, No Murmurs GI/Abdominal Exam: Soft, Non-Tender, No Organomegaly, No Distention Skin: Other (Erythema and swelling of the right face improved) Sepsis Event Note - Evaluation Sepsis Screening Result: No Definite Risk - Focused Exam Vital Signs: Vital Signs Temp Temp Pulse Pulse Resp BP BP 05/05/19 10:45 97.7 F 70 16 133/77 05/05/19 09:21 208.9 F H 05/05/19 08:51 99.5 F 05/05/19 08:45 65 145/71 H 05/05/19 08:44 145/71 H 05/05/19 07:00 99.5 F 65 16 145/71 H 05/05/19 02:45 99.6 F 70 18 163/72 H Pulse Ox 05/05/19 10:45 95 05/05/19 09:21 05/05/19 08:51 05/05/19 08:45 05/05/19 08:44 05/05/19 07:00 94 L 05/05/19 02:45 94 L Date Exam was Performed: 05/05/19 Time Exam was Performed: 13:28 - Problem List Review Problem List Initiated/Reviewed/Updated: Yes - My Orders Last 24 Hours: My Active Orders 05/04/19 17:00 Aspirin [Halfprin] 81 mg PO QPM Enoxaparin [Lovenox] 40 mg SUBCUT QPM 05/04/19 21:00 atorvaSTATin [Lipitor] 40 mg PO BEDTIME 05/05/19 13:19 Convert IV to Saline Lock [OM.PC] Routine 05/06/19 05:00 BASIC METABOLIC PANEL,BMP [CHEM] Timed CBC WITH AUTO DIFF [HEME] Timed - Plan Plan:: ASSESSMENT AND PLAN CELLULITIS RIGHT FACE WITH SEPSIS-further improvement from yesterday, less erythema and swelling. Lactic acid level has normalized, he is been hemodynamically stable with no significant temperature elevations. Further improvement in white blood cell count. -Blood cultures pending -Saline lock IV -Cefazolin 2 g IV every 8 hours ACUTE KIDNEY INJURY-resolved -Continue to closely monitor urine output and renal function CORONARY ARTERY DISEASE-asymptomatic -Continue outpatient medications SEIZURE DISORDER -Continue outpatient medications MAINTENANCE ISSUES -DVT prophylaxis; Lovenox 40 mg subcu daily -GI prophylaxis; not indicated -Chow catheter; not indicated -Nutrition; 2 g sodium diet -Nicotine dependence; not required CODE STATUS-FULL CODE ADMISSION STATUS-patient will be admitted to inpatient status, expect at least a 2 night hospital stay for evaluation and management of problems as outlined above. At the time of this admission I do not reasonably expected evaluation and management of this problem will require more than a 96 hour hospital stay. DISPOSITION-anticipate discharge to home after the hospital stay. PRIMARY CARE PROVIDER-
[2019-05-05] MEDS: Aspirin 81 MG Tab.EC PO SCH (17:27)
[2019-05-05] MEDS: Enoxaparin 40 MG/0.4 ML Syringe SUBCUT SCH (17:28)
[2019-05-05] MEDS: atorvaSTATin 20 MG Tab PO SCH (21:28)
[2019-05-06] MEDS: ceFAZolin 2 GM in Sodium Chloride 0.9% 50 ML IV SCH ×2 (05:39→13:05)
[2019-05-06] MEDS: Lisinopril 20 MG Tab PO SCH (08:15)
[2019-05-06] MEDS: Metoprolol Succinate 50 MG Tab.ER PO SCH (08:15)
[2019-05-06] MEDS: carBAMazepine 200 MG Tab PO SCH (08:16)
[2019-05-06] MEDS: amLODIPine 10 MG Tab PO SCH (08:16)
[2019-05-06] MEDS: Divalproex Sodium 250 MG Tab.ER PO SCH (08:17)
[2019-05-06] MEDS ORDERED: Potassium Chloride 20 MEQ Tab.ER PO ONE (09:30)
[2019-05-06 13:11] VITALS: BP 157/72; PULSE 57
--- NOTE | 2019-05-06 13:13 | PCM.DCSUM1 ---
Discharge Summary - Hospital Course Brief History: Mr. Tai is a 68-year-old gentleman who was admitted through the emergency department with fever, weakness and leukocytosis, secondary to cellulitis of the right face and scalp. - Discharge Data Discharge Date: 05/06/19 Discharge Disposition: Home, Self-Care 01 Condition: Fair - Referral to Home Health Primary Care Physician: PCP None - Discharge Diagnosis/Problem(s) (1) Facial cellulitis SNOMED Code(s): 933448856 ICD Code: L03.211 - CELLULITIS OF FACE Status: Acute Current Visit: Yes (2) Sepsis SNOMED Code(s): 67983237 ICD Code: A41.9 - SEPSIS, UNSPECIFIED ORGANISM Status: Acute Current Visit: Yes - Patient Summary/Data Hospital Course: Mr. Tai is a 68-year-old gentleman who was admitted through the emergency department with weakness and fever secondary to cellulitis of his right face and head. He has not felt well over the past 5 days, noted erythema swelling of his right cheek yesterday. Since then the area of erythema and induration has increased and spread onto the forehead and scalp. He has had fever, chills, nausea, and vomiting, as well as weakness. On evaluation in the emergency department white blood cell count is elevated at 20,000 and he has had a documented fever. He was felt to have sepsis associated with the cellulitis and did receive vigorous IV fluid replacement in the emergency department. Blood cultures were obtained and he was started on antibiotic therapy with ceftazolin 2 g IV every 8 hours. Blood culture remain negative throughout his hospital stay. He gradually improved with antibiotic therapy and by the time of discharge his white blood cell count had normalized and he had not had a significant temperature elevation for 24 hours. There was mild residual erythema in the right face and forehead, significantly improved from admission and nontender. He will complete an additional 7 days of oral antibiotic therapy with cephalexin. Jayla will be as tolerated and he will resume his usual diet. Follow-up appointment will be scheduled with his primary care provider within 1 week. He will return immediately to the emergency department if he notes recurrent fever increased erythema or swelling. - Patient Instructions Diet: Usual Diet as Tolerated Activity: As Tolerated - Discharge Plan *PRESCRIPTION DRUG MONITORING PROGRAM REVIEWED*: Not Applicable *COPY OF PRESCRIPTION DRUG MONITORING REPORT IN PATIENT AASHISH: Not Applicable Prescriptions/Med Rec: Cephalexin [Seanflex] 500 mg PO Q6H #28 capsule Lactobacillus Acidophilus [Acidophilus Lactobacilli] 1 each PO BID #60 capsule Home Medications: Home Meds Aspirin [Halfprin] 1 tab PO DAILY 12/31/14 [History] Cholecalciferol (Vitamin D3) [Vitamin D3] 1 cap PO DAILY 12/31/14 [History] Divalproex Sodium [Divalproex Sodium ER] 1,000 mg PO BID 12/31/14 [History] Lisinopril 40 mg PO DAILY 12/31/14 [History] Multivitamin with Minerals [Multiple Vitamin] 1 tab PO DAILY 12/31/14 [History] amLODIPine [Norvasc] 10 mg PO DAILY 12/31/14 [History] atorvaSTATin [Lipitor] 40 mg PO BEDTIME 12/31/14 [History] carBAMazepine [TEGretol Tab] 300 mg PO BID 12/31/14 [History] Metoprolol Succinate 1 tab PO DAILY 05/03/19 [History] hydroCHLOROthiazide [Hydrochlorothiazide] 25 mg PO DAILY 05/03/19 [History] Cephalexin [Keflex] 500 mg PO Q6H #28 capsule 05/06/19 [Rx] Lactobacillus Acidophilus [Acidophilus Lactobacilli] 1 each PO BID #60 capsule 05/06/19 [Rx] Patient Handouts: Cellulitis, Adult Referrals: PCP,None [Primary Care Provider] - 05/13/19 12:30 pm (Follow up with Lakeshia Winters 2019 at 12:30) - Discharge Summary/Plan Comment DC Time >30 min.: No - Patient Data Vitals - Most Recent: Last Vital Signs Temp 36.5 F L 05/06/19 13:00 Pulse 57 L 05/06/19 13:00 Resp 16 05/06/19 13:00 BP 157/72 H 05/06/19 13:00 Pulse Ox 96 05/06/19 13:00 Weight - Most Recent: 183 lb 6.4 oz I&O - Last 24 hours: Intake & Output 05/05/19 05/06/19 05/06/19 22:59 06:59 14:59 Intake Total 1273 Balance 1273 Lab Results - Last 24 hrs: Laboratory Results - last 24 hr 05/06/19 05/06/19 Range/Units 04:15 04:15 WBC 8.5 (4.5-11.0) K/uL RBC 3.63 L (4.30-5.90) M/uL Hgb 11.1 L (12.0-15.0) g/dL Hct 35.3 L (40.0-54.0) % MCV 97 (80-98) fL MCH 31 (27-31) pg MCHC 31 L (32-36) % Plt Count 198 (150-400) K/uL Add Manual Diff Yes Neutrophils % (Manual) 39 (36-66) % Band Neutrophils % 10 (5-11) % Lymphocytes % (Manual) 35 (24-44) % Monocytes % (Manual) 13 H (2-6) % Eosinophils % (Manual) 3 (2-4) % Sodium 140 (140-148) mmol/L Potassium 3.4 L (3.6-5.2) mmol/L Chloride 104 (100-108) mmol/L Carbon Dioxide 29 (21-32) mmol/L Anion Gap 10.4 (5.0-14.0) mmol/L BUN 11 D (7-18) mg/dL Creatinine 0.9 (0.8-1.3) mg/dL Est Cr Clr Drug Dosing 61.47 mL/min Estimated GFR (MDRD) > 60 (>60) Glucose 98 (74-106) mg/dL Calcium 8.5 (8.5-10.1) mg/dL REGGIE Results - Last 24 hrs: Microbiology 05/03/19 14:15 Aerobic Blood Culture - Preliminary Blood - Venous NO GROWTH AFTER 2 DAYS Anaerobic Blood Culture - Preliminary NO GROWTH AFTER 2 DAYS 05/03/19 14:00 Aerobic Blood Culture - Preliminary Blood - Venous NO GROWTH AFTER 2 DAYS Anaerobic Blood Culture - Preliminary NO GROWTH AFTER 2 DAYS Med Orders - Current: Current Medications Acetaminophen (Tylenol) 650 mg PO Q4H PRN PRN Reason: Pain (Mild 1-3)/fever Last Admin: 05/05/19 08:51 Dose: 650 mg Amlodipine Besylate (Norvasc) 10 mg PO DAILY [facility] Last Admin: 05/06/19 08:16 Dose: 10 mg Aspirin (Halfprin) 81 mg PO QPM NIRAV Last Admin: 05/05/19 17:27 Dose: 81 mg Atorvastatin Calcium (Lipitor) 40 mg PO BEDTIME [facility] Last Admin: 05/05/19 21:28 Dose: 40 mg Carbamazepine (Tegretol Tab) 300 mg PO BID [facility] Last Admin: 05/06/19 08:16 Dose: 300 mg Divalproex Sodium (Depakote Er) 1,000 mg PO BID [facility] Last Admin: 05/06/19 08:17 Dose: 1,000 mg Enoxaparin Sodium (Lovenox) 40 mg SUBCUT QPM [facility] Last Admin: 05/05/19 17:28 Dose: 40 mg Cefazolin Sodium 2 gm/ Sodium (Chloride) 50 mls @ 200 mls/hr IV Q8HR [facility] Last Admin: 05/06/19 13:05 Dose: 200 mls/hr Lisinopril (Prinivil) 40 mg PO DAILY [facility] Last Admin: 05/06/19 08:15 Dose: 40 mg Metoprolol Succinate (Toprol Xl) 50 mg PO BID [facility] Last Admin: 05/06/19 08:15 Dose: 50 mg Ondansetron HCl (Zofran) 4 mg IV Q4H PRN PRN Reason: Nausea/Vomiting Oxycodone HCl (Oxycodone) 5 mg PO Q4H PRN PRN Reason: Pain (moderate 4-6) Polyethylene Glycol (Miralax) 17 gm PO DAILY PRN PRN Reason: Constipation Sodium Chloride (Saline Flush) 10 ml FLUSH ASDIRECTED PRN PRN Reason: Keep Vein Open Discontinued Medications Acetaminophen (Tylenol Extra Strength) 1,000 mg PO ONETIME ONE Stop: 05/03/19 14:41 Last Admin: 05/03/19 14:58 Dose: 1,000 mg Aspirin (Halfprin) 81 mg PO DAILY [facility] Enoxaparin Sodium (Lovenox) 40 mg SUBCUT DAILY [facility] Last Admin: 05/03/19 18:00 Dose: 40 mg Lactated Ringer's (Ringers, Lactated) 1,000 mls @ 1,000 mls/hr IV BOLUS ONE Stop: 05/03/19 14:57 Last Admin: 05/03/19 14:18 Dose: 1,000 mls/hr Cefazolin Sodium/Dextrose 2 gm (/ Premix) 50 mls @ 100 mls/hr IV ONETIME ONE Stop: 05/03/19 14:29 Last Admin: 05/03/19 14:18 Dose: 100 mls/hr Sodium Chloride (Normal Saline) 1,000 mls @ 125 mls/hr IV ASDIRECTED NIRAV Last Admin: 05/05/19 12:40 Dose: 125 mls/hr Sodium Chloride (Normal Saline) 1,000 mls @ 500 mls/hr IV ASDIRECTED NIRAV Stop: 05/04/19 11:01 Last Admin: 05/04/19 09:36 Dose: 500 mls/hr Ibuprofen (Motrin) 800 mg PO Q8H PRN PRN Reason: Fever Last Admin: 05/03/19 21:38 Dose: 800 mg Potassium Chloride (Klor-Con M20) 40 meq PO ONETIME ONE Stop: 05/04/19 09:01 Last Admin: 05/04/19 09:31 Dose: 40 meq Potassium Chloride (Klor-Con M20) 40 meq PO ONETIME ONE Stop: 05/04/19 13:01 Last Admin: 05/04/19 14:23 Dose: 40 meq Potassium Chloride (Klor-Con M20) 40 meq PO ONETIME ONE Stop: 05/06/19 09:31 Last Admin: 05/06/19 09:41 Dose: 40 meq - Exam General: Reports: Alert, Oriented, Cooperative, No Acute Distress Lungs: Reports: Clear to Auscultation, Normal Respiratory Effort Cardiovascular: Reports: Regular Rate, Regular Rhythm, No Murmurs GI/Abdominal Exam: Soft, Non-Tender, No Organomegaly, No Distention Skin: Reports: Other (Mild residual erythema right face)
== END 2019-05-06 14:12 | disposition home or self-care (01) | DRG 872 ==
LOC: JP.ED 13:54 → JP.MS 15:10
PROVIDERS: ADMIT Hospitalist; ATTEND Hospitalist
DX: A41.9 Sepsis, unspecified organism (principal); L03.211 Cellulitis of face; N17.9 Acute kidney failure, unspecified; E78.00 Pure hypercholesterolemia, unspecified; I10 Essential (primary) hypertension; E87.6 Hypokalemia; R41.0 Disorientation, unspecified; M54.9 Dorsalgia, unspecified; G89.29 Other chronic pain; G40.909 Epilepsy, unspecified, not intractable, without status epilepticus; I25.10 Atherosclerotic heart disease of native coronary artery without angina pectoris; Z90.49 Acquired absence of other specified parts of digestive tract; Z79.82 Long term (current) use of aspirin; Z79.2 Long term (current) use of antibiotics; Z79.899 Other long term (current) drug therapy; Z88.8 Allergy status to other drugs, medicaments and biological substances; I25.2 Old myocardial infarction; Z95.1 Presence of aortocoronary bypass graft
CPT/HCPCS: 36415; 80048; 83605; 85027; 87040 ×2; 96365; 99285; A9270; J0690; J7120; 81001; 85025; 99284; J1650; J7030; J7050

== ENCOUNTER 2024-08-04 09:56 | Emergency (ER) | payer MEDICARE ==
[2024-08-04 10:23] LABS: BASOPHILS PERCENT AUTO 0.2 % (0.1-1.3); HEMATOCRIT 42.2 % (38.4-49.7); HEMOGLOBIN 14.1 g/dL (12.9-16.9); IMMATURE GRAN ABSOLUTE AUTO 0.07 K/uL (0.00-0.23); IMMATURE GRAN PERCENT AUTO 0.7 % (0.0-0.7); LYMPHOCYTES ABSOLUTE AUTO 0.96 K/uL (0.8-3.3); LYMPHOCYTES PERCENT AUTO 9.8 % (11.4-47.7); MEAN CORPUSCULAR HEMOGLOBIN 32.8 pg (31.6-35.5); MEAN CORPUSCULAR HGB CONC 33.4 g/dL (31.6-35.5); MEAN CORPUSCULAR VOLUME 98.1 fL (81.4-99.0); MONOCYTES ABSOLUTE AUTO 0.14 K/uL (0.20-0.90); MONOCYTES PERCENT AUTO 1.4 % (3.3-12.6); NEUTROPHILS ABSOLUTE AUTO 8.59 K/uL (1.0-7.6); NEUTROPHILS PERCENT AUTO 87.9 % (40.0-78.1); PLATELET COUNT,PLT 129 K/uL (130-375); WHITE BLOOD CELL COUNT,WBC 9.8 K/uL (3.2-11.0)
[2024-08-04 10:24] LABS: BASOPHILS ABSOLUTE AUTO 0.02 K/uL (0.00-0.10)
[2024-08-04 10:51] LABS: A/G RATIO 0.6 (1.2-2.2); ALANINE AMINOTRANSFERASE,ALT 36 U/L (12-78); ALBUMIN 2.9 g/dL (3.4-5.0); ALKALINE PHOSPHATASE 81 U/L (46-116); ASPARTATE AMNIOTRANSFERASE,AST 78 U/L (15-37); BILIRUBIN TOTAL 0.5 mg/dL (0.2-1.0); BLOOD UREA NITROGEN,BUN 32 mg/dL (7-18); CALCIUM 9.7 mg/dL (8.5-10.1); CARBON DIOXIDE,CO2 26 mmol/L (21-32); CHLORIDE,CL 104 mmol/L (100-108); CREATINE KINASE,CK 439 U/L (39-308); CREATININE 2.4 mg/dL (0.8-1.3); ESTIMATED GFR 27 mL/min (>60); GLUCOSE RANDOM 103 mg/dL (74-106); POTASSIUM,K 3.4 mmol/L (3.6-5.2); PROTEIN TOTAL,TP 7.7 g/dL (6.4-8.2); SODIUM,NA 144 mmol/L (140-148)
[2024-08-04 10:52] LABS: ANION GAP 17.4 mmol/L (5.0-14.0)
[2024-08-04 10:54] LABS: TROPONIN I HIGH SENSITIVITY 660.6 pg/mL (<=60.3)
[2024-08-04 11:25] LABS: LACTIC ACID 6.1 mmol/L (0.4-2.0)
[2024-08-04] MEDS: Sodium Chloride 0.9% 1,000 ML IV SCH ×3 (11:43→17:11)
[2024-08-04] MEDS ORDERED: Sodium Chloride 0.9% 1,000 ML IV SCH (13:15)
[2024-08-04 13:38] LABS: APPEARANCE,URINE CLEAR (CLEAR); BILIRUBIN,URINE NEGATIVE (NEGATIVE); COLOR,URINE YELLOW (YELLOW); GLUCOSE,URINE NEGATIVE (NEGATIVE); KETONES,URINE NEGATIVE (NEGATIVE); LEUKOCYTE ESTERASE,URINE NEGATIVE (NEGATIVE); NITRITE,URINE NEGATIVE (NEGATIVE); OCCULT BLOOD,URINE MODERATE (NEGATIVE); PROTEIN,URINE 30 mg/dL (NEGATIVE); UROBILINOGEN,URINE 0.2 EU/dL (0.2-1.0)
[2024-08-04] MEDS: Acetaminophen 1,000 MG in Premix Bag 1 BAG IV ONE (13:45)
[2024-08-04] MEDS: cefTRIAXone 2 GM in Sodium Chloride 0.9% 100 ML IV SCH (13:45)
[2024-08-04 13:46] LABS: AMORPHOUS SEDIMENT,URINE NOT SEEN; BACTERIA,URINE RARE; EPITHELIAL CELLS,URINE FEW; MUCUS,URINE NOT SEEN; WBC,URINE 0-5 (0-5)
[2024-08-04 14:01] LABS: CORONAVIRUS COVID-19 NAA NEGATIVE (NEGATIVE); INFLUENZA A NAA NEGATIVE (NEGATIVE); INFLUENZA B NAA NEGATIVE (NEGATIVE); RESPIRATORY SYNCYTIAL VIR NAA NEGATIVE (NEGATIVE)
[2024-08-04] MEDS: Iopamidol 755 Mg/ML 100 ML Bottle IV ONE (14:46)
[2024-08-04] MEDS: Sodium Chloride 0.9% 100 ML IV SCH (14:46)
[2024-08-04] MEDS: Heparin Sodium 5,000 Units/ML Vial IVPUSH ONE (16:19)
[2024-08-04] MEDS: Heparin Sodium/D5W 25,000 UNITS/500 ML BAG IV SCH (16:25)
[2024-08-04 16:29] LABS: LYME AB IgG Negative (Negative); LYME AB IgM Negative (Negative)
[2024-08-04 16:55] LABS: BASE EXCESS ARTERIAL -13.7 mm/L; BICARBONATE,ARTERIAL 11.5 mmol/L (22.0-26.0); CARBOXYHEMOGLOBIN 1.1 % (0.0-1.6); METHEMOGLOBIN 0.9 %; O2 SATURATION ARTERIAL 92.3 % (95.0-98.0); OXYHEMOGLOBIN 90.5 %; PCO2 ARTERIAL 25.6 mmHg (35.0-42.0); PO2 ARTERIAL 79.8 mmHg (75.0-100.0); TOTAL HEMOGLOBIN 12.6 g/dL (13.5-18.0)
[2024-08-04] MEDS: Norepinephrine Bit/D5W Premix 4 MG in Premix Bag 1 BAG IV SCH (16:55)
[2024-08-04] MEDS: methylPREDNISolone Sodium Succinate 125 MG/2 ML SDV IVPUSH ONE (17:14)
[2024-08-04] MEDS ORDERED: Vasopressin 100 UNITS in Dextrose 5% in Water 250 ML IV SCH (17:45)
[2024-08-04 18:14] VITALS: BP 97/53; PULSE 85
== END 2024-08-04 18:39 ==
LOC: JP.ED 09:56
DX: A41.9 Sepsis, unspecified organism (principal); R65.20 Severe sepsis without septic shock; I21.4 Non-ST elevation (NSTEMI) myocardial infarction; I25.10 Atherosclerotic heart disease of native coronary artery without angina pectoris; E78.00 Pure hypercholesterolemia, unspecified; I10 Essential (primary) hypertension; I25.2 Old myocardial infarction; Z95.1 Presence of aortocoronary bypass graft; Z88.8 Allergy status to other drugs, medicaments and biological substances; Z79.82 Long term (current) use of aspirin; Z79.899 Other long term (current) drug therapy
CPT/HCPCS: 0241U; 36415; 36600; 70450; 70450-26; 71045; 71045-26; 71275; 71275-26; 72125; 72125-26; 76377; 76377-26; 80053; 80307; 81001; 82550; 82803; 83605; 84443; 84484; 85025; 86140; 86618; 87040; 87077; 87186; 93005; 93010; 96361; 96365; 96366; 96367; 96368; 96375; 99285; 99285-25; J0131; J0696; J1644; J2919; J7030; Q9967